=== PATIENT | male | born 1975 | race Caucasian/White ===

== ENCOUNTER → 2016-07-28 | Outpatient (CLI) | payer BC ==
[2016-07-28 12:22] LABS: CHLORIDE,CL 104 mmol/L (98-110); SODIUM,NA 137 mmol/L (136-146)
== END ==
LOC: MW.CHIM 11:10
PROVIDERS: ATTEND Internal Medicine
DX: G44.219 Episodic tension-type headache, not intractable (principal)
CPT/HCPCS: 36415; 80053; 85025

== ENCOUNTER → 2016-07-30 | Outpatient (CLI) | payer BC ==
--- NOTE | 2016-07-30 12:35 | CT ---
EXAMINATION: Non contrast CT head. Coronal and sagittal reformats. HISTORY: Injury FINDINGS: No evidence of intra or extra axial hemorrhage, mass, midline shift, hydrocephalus or edema. No hypoattenuation changes in the major vascular territories to suggest acute infarct. No abnormal intracranial calcifications are detected. No evidence of substantial vascular calcifica tions. Paranasal sinuses and mastoid air cells are well aerated without substantial findings. The orbits a nd globes appear normal. Pituitary fossa appears unremarkable. Calvarium is intact. No evidence of skull fracture. IMPRESSION: No acute intracranial findings.
== END ==
LOC: MW.DI 08:23
PROVIDERS: ATTEND Internal Medicine
DX: S09.90XA Unspecified injury of head, initial encounter (principal)
CPT/HCPCS: 70450; 70450-26

== ENCOUNTER 2017-04-06 18:23 | Emergency (ER) | payer BC, OTHER ==
[2017-04-06] MEDS ORDERED: Ketorolac 60 MG/2 ML SDV IM ONE (19:23)
--- NOTE | 2017-04-06 19:25 | EDM.PDOC ---
ED HPI GENERAL MEDICAL PROBLEM - General Chief Complaint: Upper Extremity Injury/Pain Stated Complaint: PAIN RT SHOULDER Time Seen by Provider: 04/06/17 19:19 - History of Present Illness INITIAL COMMENTS - FREE TEXT/NARRATIVE: HISTORY AND PHYSICAL: History of present illness: The patient is a healthy 41-year-old male who presents after a heavy large object fell onto his right upper and posterior shoulder while at work today at approximately 4 PM. Patient did not pass out or blackout but has had persistent pain in the right shoulder at the upper part and posteriorly as well as his right ribs. It did not his head or neck and he has no head midline neck or midline back pain and he says he has some numbness and tingling in his right upper extremity because he is afraid to move it. He has no discrete elbow forearm wrist or hand pain on the right and he is right-hand dominant. The patient to not take anything for the pain prior to coming here. Prior to these events he was in his usual state of good health without systemic complaints. Patient saying that since the event the pain has spread from his shoulder area where it originated and now he feels like it's settling into his ribs although there was no direct blow to that area on the right. Review of systems: As per history of present illness and below otherwise all systems reviewed and negative. Past medical history: As per history of present illness and as reviewed below otherwise noncontributory. Surgical history: As per history of present illness and as reviewed below otherwise noncontributory. Social history: No reported history of drug or alcohol abuse. Family history: As per history of present illness and as reviewed below otherwise noncontributory. Physical exam: Gen.: Well-developed well-nourished man who is nontoxic and moves slowly due to discomfort but he is speaking clearly and easily. Vital signs reviewed by me. HEENT: Atraumatic, normocephalic, negative for conjunctival pallor or scleral icterus, mucous membranes moist, throat clear, neck supple, nontender, trachea midline. There is no evidence of any facial injuries such as swelling defects or deformities and there are no midline step-offs in his defects of the cervical spine. Lungs: Clear to auscultation, breath sounds equal bilaterally, chest with tenderness at palpation of the upper ribs posteriorly and anteriorly without defects deformities crepitus. There is no evidence of any erythema or soft tissue injuries Heart: S1S2, regular 8 and rhythm no overt murmurs Abdomen: Soft, nondistended, nontender. NABS Negative for costovertebral tenderness. Pelvis: Stable nontender. Genitourinary: Deferred. Rectal: Deferred. Extremities: Atraumatic appearing throughout without any ecchymosis erythema soft tissue swelling noted even at the right shoulder area, there is no right clavicle tenderness but there is soft tissue tenderness at palpation of the trapezius and deltoid on the right. There is no specific humeral bone tenderness and there is no distal elbow forearm wrist or hand tenderness. There is no evidence of any crepitus ecchymosis or any soft tissue injuries seen in the region patient indicates that the object fell on top of. There is discrete tenderness when I palpate the soft tissues in this area. The legs are, negative for cords or calf pain. Neurovascular unremarkable. Neuro: Awake, alert, oriented. Cranial nerves II through XII unremarkable. Cerebellum unremarkable. Motor and sensory unremarkable throughout. Exam nonfocal. Back: There are no midline step-offs in his defects of the thoracic or lumbar spine and no posterior rib tenderness Diagnostics: Right ribs with chest x-ray, right shoulder x-ray Therapeutics: Toradol Patient was offered a sling and defers Impression: Blunt trauma to right shoulder, right shoulder contusion right chest wall contusion Definitive disposition and diagnosis as appropriate pending reevaluation and review of above. Right Shoulder Pain Score (Numeric/FACES): 10 - Related Data Allergies Allergy/AdvReac Type Severity Reaction Status Date / Time No Known Allergies Allergy Verified 04/06/17 18:51 Home Meds: Home Meds . [No Known Home Meds] 10/03/13 [History] Past Medical History - Infectious Disease History Infectious Disease History: Reports: Chicken Pox, Measles, Mumps - Past Surgical History GI Surgical History: Reports: Other (See Below) Other GI Surgeries/Procedures: traumatic abdominal surgery Social & Family History - Family History Family Medical History: Noncontributory - Tobacco Use Smoking Status *Q: Never Smoker Second Hand Smoke Exposure: No - Caffeine Use Caffeine Use: Reports: None - Alcohol Use Days Per Week of Alcohol Use: 0 - Recreational Drug Use Recreational Drug Use: No Review of Systems - Review of Systems Review Of Systems: ROS reveals no pertinent complaints other than HPI. ED EXAM, GENERAL - Physical Exam Exam: See Below (See dictation) Course - Vital Signs Last Recorded V/S: Last Vital Signs Temp 37.1 C 04/06/17 18:48 Pulse 91 04/06/17 18:48 Resp 18 04/06/17 18:48 BP 139/86 04/06/17 18:48 Pulse Ox 95 04/06/17 18:48 - Orders/Labs/Meds Orders: Active Orders 24 hr Category Date Time Status Ribs 2V w Chest Rt [CR] Stat Exams 04/06/17 19:23 Taken Shoulder Comp Rt [CR] Stat Exams 04/06/17 19:23 Taken Meds: Medications Discontinued Medications Generic Name Dose Route Start Last Admin Trade Name Freq PRN Reason Stop Dose Admin Ketorolac Tromethamine 60 mg 04/06/17 19:23 04/06/17 19:38 Toradol IM 04/06/17 19:24 60 mg ONETIME ONE Administration Departure - Departure Time of Disposition: 20:25 Disposition: Home, Self-Care 01 Condition: Good Clinical Impression: Contusion of right shoulder Qualifiers: Encounter type: initial encounter Qualified Code(s): S40.011A - Contusion of right shoulder, initial encounter Contusion of rib on right side Qualifiers: Encounter type: initial encounter Qualified Code(s): S20.211A - Contusion of right front wall of thorax, initial encounter - Discharge Information Referrals: PCP,None [Primary Care Provider] - Forms: ED Department Discharge Additional Instructions: The following information is given to patients seen in the emergency department who are being discharged to home. This information is to outline your options for follow-up care. We provide all patients seen in our emergency department with a follow-up referral. The need for follow-up, as well as the timing and circumstances, are variable depending upon the specifics of your emergency department visit. If you don't have a primary care physician on staff, we will provide you with a referral. We always advise you to contact your personal physician following an emergency department visit to inform them of the circumstance of the visit and for follow-up with them and/or the need for any referrals to a consulting specialist. The emergency department will also refer you to a specialist when appropriate. This referral assures that you have the opportunity for followup care with a specialist. All of these measure are taken in an effort to provide you with optimal care, which includes your followup. Under all circumstances we always encourage you to contact your private physician who remains a resource for coordinating your care. When calling for followup care, please make the office aware that this follow-up is from your recent emergency room visit. If for any reason you are refused follow-up, please contact the [facility] emergency department at and ask to speak to the emergency department charge nurse. [facility] Primary care- Internal Medicine and Family [facility] [address] [place] [id number] [facility] Specialty Care--Orthopedic clinic Professional Building [address] [place] [id number] Rest the area and use the arm very slowly. Place ice on it for inflammation and swelling and use [id number] ibuprofen/Motrin or Tylenol for pain. Please call and follow-up with one of our providers in the clinic or our orthopedics clinic if you have persistent pain or issues and return to ER as needed and as discussed. Expect the pain to slowly improve over the next several days to one week - My Orders Last 24 Hours: My Active Orders 04/06/17 19:23 Ribs 2V w Chest Rt [CR] Stat Shoulder Comp Rt [CR] Stat - Assessment/Plan Last 24 Hours: My Active Orders 04/06/17 19:23 Ribs 2V w Chest Rt [CR] Stat Shoulder Comp Rt [CR] Stat
[2017-04-06 20:53] VITALS: BP 130/80
--- NOTE | 2017-04-07 08:59 | CR ---
EXAM DATE: 04/06/17 PATIENT'S AGE: 41 Patient: DOMI GODOY Facility: [place], [place] Site . Site : 1975 Study: XRay Chest Right RIBS [id number]/8/2018 8:03:39 PM Ordering Physician: Irma Lawson Final Report: HISTORY: Water drum fell on the patient, pain in right shoulder and ribs. FINDINGS: PA chest and 3 views of the right ribs are compared with 18 January 2016. The cardiac silhouette is normal. Pulmonary vasculature is free of cephalization. No consolidation, pleural effusion or pneumothorax is seen. Right clavicle is intact. No displaced rib fracture is seen. IMPRESSION: No acute cardiopulmonary disease, displaced rib fracture or pneumothorax. Dictated by Samina Johnson MD @ 04/06/2017 8:18:26 PM Dictated by: Samina Johnson MD @ 04/06/2017 20:21:02 (Electronic Signature) Report Signed by Proxy. EULOGIO
--- NOTE | 2017-04-07 08:59 | CR ---
EXAM DATE: 04/06/17 PATIENT'S AGE: 41 Patient: DOMI GODOY Facility: [place], [place] Site . Site : 1975 Study: XRay Shoulder Right [id number]/8/2018 8:04:39 PM Ordering Physician: Irma Lawson Final Report: HISTORY: Water drum fell on patient, right shoulder and rib pain. FINDINGS: Two views of the right shoulder demonstrates an intact clavicle. There is normal alignment of the AC joint and glenohumeral joint. No fracture or dislocation is seen. There is a focus of soft tissue calcification adjacent to the humeral neck unchanged from 18 January 2016 chest and rib series. There is also a tiny metallic focus seen in the soft tissues of the upper arm also unchanged compared with the prior exam. IMPRESSION: No acute fracture or dislocation. Dictated by Samina Johnson MD @ 04/06/2017 8:20:45 PM Dictated by: Samina Johnson MD @ 04/06/2017 20:20:57 (Electronic Signature) Report Signed by Proxy. [facility]eth
== END 2017-04-06 20:40 | disposition home or self-care (01) ==
LOC: MW.ED 18:23
DX: S40.011A Contusion of right shoulder, initial encounter (principal); S20.211A Contusion of right front wall of thorax, initial encounter; W20.8XXA Other cause of strike by thrown, projected or falling object, initial encounter
CPT/HCPCS: 71101; 73030; 96372; 99283; J1885; 99284